=== PATIENT | female | born 1935 | race Caucasian/White ===

== ENCOUNTER → 2017-03-29 | Outpatient (CLI) | payer OTHER | LOC: FIMAGING 13:43 | PROVIDERS: ATTEND Registered Nurse | DX: R05 Cough (principal); R53.83 Other fatigue; I70.0 Atherosclerosis of aorta; G30.9 Alzheimer's disease, unspecified ==

== ENCOUNTER 2018-02-20 09:34 | Observation (INO) | payer OTHER ==
--- NOTE | 2018-02-20 09:47 | EDPHY ---
H & P Time Seen by Provider: 02/20/18 09:34 HPI/ROS: CHIEF COMPLAINT: Unresponsiveness at 9:00 a.m. HISTORY OF PRESENT ILLNESS: 80-year-old woman has pretty severe dementia and arrives by EMS. History is from them as she has no recollection of the event. Apparently EMS was called when at 9:00 a.m. The patient was found by staff at her assisted living in the bathroom with a bowel movement in the toilet, she was unresponsive and her eyes were rolled back and she was clutching her chest. She came around within less than a minute and now is asymptomatic. Further history and review of systems unavailable because the patient has dementia and does not remember any of this. Her guardian Naveen who arrives states that she has not been sick recently to his knowledge. PAST MEDICAL HISTORY: Dementia Social history: Assisted living General Appearance: Alert, follows commands Eyes: No scleral icterus. Pupils equal and reactive and extraocular motion intact. ENT, Mouth: Normal mucous membranes. No tongue laceration or abrasion. Respiratory: Normal respiratory effort, breath sounds equal, lungs are clear to auscultation. Cardiovascular: Regular rate and rhythm. Gastrointestinal: Abdomen is soft and non tender. Neurological: Alert, face symmetric, normal motor and sensory in extremities. She has poor memory but is able to follow commands and is able to the verbally respond appropriately to questions. Skin: Warm and dry, no rashes. Musculoskeletal: No peripheral edema. Psychiatric: Not agitated. Emergency Department course/MDM: Unknown but concern for neurologic or cardiac event. Head CT chest x-ray EKG and labs to include troponin. 1035: Results and plan discussed with the guardian Naveen and the patient. Seen by Dr. Rojo in Ed. Smoking Status: Never smoked Constitutional: Initial Vital Signs Temperature (C) 36.3 C 02/20/18 09:39 Heart Rate 72 02/20/18 09:39 Respiratory Rate 16 02/20/18 09:39 Blood Pressure 117/68 02/20/18 09:39 O2 Sat (%) 93 02/20/18 09:39 O2 Delivery Mode Room Air Allergies/Adverse Reactions: Penicillins Allergy (Verified 11/06/13 18:40) Home Medications: Medication Instructions Recorded Aspirin [Aspirin 81mg (*)] 81 mg PO DAILY 02/20/18 Docusate Sodium [Colace 100 MG (*)] 100 mg PO DAILY 02/20/18 Multivitamins [Multivitamin (*)] 1 each PO DAILY 02/20/18 Medical Decision Making - Diagnostics EKG Interpretation: 12-lead EKG interpreted by me; official reading is in trace master. My interpretation is sinus rhythm with nonspecific anterolateral T-wave flattening rate 75 per Imaging Results: Imaging Impressions Chest X-Ray 02/20/18 09:39 Impression: Chronic mild cardiomegaly without failure. Nothing acute identified. Head CT 02/20/18 09:45 Impression: 1. No acute intracranial findings. If symptoms persist and clinical suspicion warrants, consider MRI. 2. Diffuse cerebral atrophy with periventricular and subcortical low attenuation consistent with chronic microvascular ischemic gliosis. 3. 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 Findings discussed with STARLA LION 02/20/2018 at 10:29. Head CT shows nothing acute per Dr. Dean at 10:30 a.m. Imaging: Discussed imaging studies w/ executive personal assistant Radiologist, I viewed and interpreted images myself Differential Diagnosis: Differential diagnosis considered for syncope including but not limited to vasovagal syncope, arrhythmia, dehydration, and blood loss. Consult/Admit Bed Type: [facility] for Yasmin Rojo 1030 - Data Points Laboratory Results: Laboratory Results 02/20/18 09:40 02/20/18 09:40 02/20/18 02/20/18 09:40 09:40 WBC 8.41 10^3/uL 10^3/uL (3.80-9.50) RBC 5.30 10^6/uL 10^6/uL (4.18-5.33) Hgb 16.4 g/dL H g/dL (12.6-16.3) Hct 49.7 % H % (38.0-47.0) MCV 93.8 fL fL (81.5-99.8) MCH 30.9 pg pg (27.9-34.1) MCHC 33.0 g/dL g/dL (32.4-36.7) RDW 13.1 % % (11.5-15.2) Plt Count 272 10^3/uL 10^3/uL (150-400) MPV 10.8 fL fL (8.7-11.7) Neut % (Auto) 71.4 % % (39.3-74.2) Lymph % (Auto) 21.4 % % (15.0-45.0) Gordon % (Auto) 5.4 % % (4.5-13.0) Eos % (Auto) 0.6 % % (0.6-7.6) Baso % (Auto) 0.8 % % (0.3-1.7) Nucleat RBC Rel Count 0.0 % % (0.0-0.2) Absolute Neuts (auto) 6.01 10^3/uL 10^3/uL (1.70-6.50) Absolute Lymphs (auto) 1.80 10^3/uL 10^3/uL (1.00-3.00) Absolute Monos (auto) 0.45 10^3/uL 10^3/uL (0.30-0.80) Absolute Eos (auto) 0.05 10^3/uL 10^3/uL (0.03-0.40) Absolute Basos (auto) 0.07 10^3/uL 10^3/uL (0.02-0.10) Absolute Nucleated RBC 0.00 10^3/uL 10^3/uL (0-0.01) Immature Gran % 0.4 % % (0.0-1.1) Immature Gran # 0.03 10^3/uL 10^3/uL (0.00-0.10) Sodium 144 mEq/L mEq/L (135-145) Potassium 4.7 mEq/L mEq/L (3.5-5.2) Chloride 105 mEq/L mEq/L (97-110) Carbon Dioxide 27 mEq/l mEq/l (22-31) Anion Gap 12 mEq/L mEq/L (8-16) BUN 14 mg/dL mg/dL (7-23) Creatinine 0.8 mg/dL mg/dL (0.6-1.0) Estimated GFR > 60 Glucose 133 mg/dL H mg/dL (70-100) Calcium 9.3 mg/dL mg/dL (8.5-10.4) Troponin I < 0.012 ng/mL ng/mL (0.000-0.034) Specimen Hemolysis 102 Departure - Departure Disposition: [facility] Inpatient Acute Clinical Impression: Syncope Qualifiers: Syncope type: unspecified Qualified Code(s): R55 - Syncope and collapse Condition: Good
[2018-02-20 09:48] LABS: PLATELET COUNT 272 10^3/uL (150-400)
--- NOTE | 2018-02-20 10:12 | CPEKG ---
Heart Rate: 75 RR Interval: 800 P-R Interval: 136 QRSD Interval: 78 QT Interval: 424 QTC Interval: 474 P Magnolia: 55 QRS Magnolia: -6 T Wave Magnolia: 41 EKG Severity - BORDERLINE ECG - EKG Impression: SINUS RHYTHM EKG Impression: BORDERLINE T ABNORMALITIES, ANT-LAT LEADS Electronically Signed By: Lei Amato 20-Feb-2018 10:11:29
[2018-02-20] MEDS ORDERED: ONDANSETRON DISINTEGRATING 4 MG TAB PO PRN (11:10)
[2018-02-20] MEDS ORDERED: ACETAMINOPHEN 325 MG TAB PO PRN (11:10)
[2018-02-20] MEDS ORDERED: ONDANSETRON 4 MG/2 ML VIAL IVP PRN (11:10)
--- NOTE | 2018-02-20 11:45 | GHP ---
[f rep st] HISTORY AND PHYSICAL DATE OF ADMISSION: 02/20/2018 The patient is a pleasant 82-year-old female with a history of dementia who presents with a syncopal episode. History is obtained from her caregiver as the patient is essentially alert and oriented x1. It sounds like she has been eating and drinking normally, not having nausea, vomiting, diarrhea. N ot complaining of chest pain or shortness of breath. When she was found on the toilet this morning, slumped over, possibly clutching her chest with a bowel movement in the toilet. There is no comment on whether it was represented as black or diarrhea. According to her caregiver and power of liquor establishment manager, the patient HS been doing well. Eating and drinkin g normally, not having diarrhea, nausea, vomiting, cough, shortness of breath. There is a piece of paper at the bedside which is signed in August 2014 representing full code. I s pent about 15 minutes discussing the risks and benefits of a do not resuscitate order in this patient with advanced dementia. REVIEW OF SYSTEMS: A complete 10-point review of systems conducted and negative except as noted in t he HPI. PAST MEDICAL HISTORY: Dementia, osteoporosis, pelvic fracture. SOCIAL HISTORY: She lives in assisted living. No tobacco. No alcohol. FAMILY HISTORY: Parents are . PHYSICAL EXAMINATION: VITAL SIGNS: Temp 36.3, blood pressure 117/68, pulse 72, breathing 16 times a minute, 93% on room air. GENERAL: In no acute distress. HEENT: Sclerae anicteric. Oropharynx cl ear. Poor dentition. Mucous membranes are moist. NECK: Supple. No lymphadenopathy or JVD. LUNGS : Clear to auscultation bilaterally. HEART: S1, S2. ABDOMEN: Soft, nontender, nondistended. LOW ER EXTREMITIES: No edema. Calves are nontender. SKIN: Without rash. NEUROLOGIC: Exam is nonfoca l. The patient is alert and oriented x1. LABS: White count 8, hematocrit 49, platelets 272,000. Chem 7 normal. Glucose 133. Troponin less than 0.012. Chest x-ray interpreted by me shows no acute cardiopulmonary disease. EKG interpreted b y me shows sinus at 75 with normal axis and intervals. No ST or T-wave changes. I have discussed the case with Dr. Lei Amato. ASSESSMENT AND PLAN: 82-year-old female with syncope. 1. Syncope. In the setting of a bowel movement, this is most consistent with vasovagal syncope, whi ch is a benign condition. Tachy and bradycardias have been considered. Pulmonary embolism is unlike ly given bradycardia and absence of oxygen requirement or EKG strain. The patient does not have an a cute medical condition. She appears euvolemic. We will follow on telemetry. 2. Dementia. We will minimize sedating medications. 3. Code status. I discussed the risks and benefits of do not resuscitate. The caregiver is conside ring. 4. Question of gastrointestinal bleed. We will repeat a CBC in the morning. DISPOSITION: Observation status. /[id number]/MODL
[2018-02-21 04:11] LABS: PLATELET COUNT 248 10^3/uL (150-400)
[2018-02-21] MEDS ORDERED: ASPIRIN 81 MG CHEWABLE TAB PO SCH (09:00)
[2018-02-21] MEDS ORDERED: DOCUSATE SODIUM 100 MG CAP PO SCH (09:00)
[2018-02-21] MEDS ORDERED: MULTIVITAMINS 1 EACH TAB PO SCH (09:00)
--- NOTE | 2018-02-21 11:19 | HOSPPROG ---
Hospitalist Progress Note Assessment/Plan: 82 yo F w likely vasovagal syncope home today see dc summary Subjective: no events tele (interp by me). has elected dnr Objective: Vital Signs Temp Pulse Resp BP Pulse Ox 36.4 C 67 18 149/87 H 95 02/21/18 09:37 02/21/18 09:37 02/21/18 09:37 02/21/18 09:37 02/21/18 09:37 Laboratory Results 02/21/18 03:44 02/20/18 02/21/18 02/22/18 05:59 05:59 05:59 Intake Total 570 Balance 570 - Physical Exam Constitutional: no apparent distress, appears nourished Eyes: PERRL, anicteric sclera Ears, Nose, Mouth, Throat: moist mucous membranes, hearing normal Cardiovascular: regular rate and rhythym, no murmur, rub, or gallop, No systolic murmur Respiratory: no respiratory distress, no rales or rhonchi Gastrointestinal: normoactive bowel sounds, soft, non-tender abdomen Genitourinary: no bladder fullness, No mike in urethra Skin: warm Musculoskeletal: full muscle strength Neurologic: AAOx3 ICD10 Worksheet Patient Problems: Problems Problem Status Onset Syncope Acute Gait disturbance Acute
--- NOTE | 2018-02-21 11:25 | ASMTCMCOM ---
CM Note CM Note Notes: Patient admitted for likely vasovagal syncope. She has a history of dementia and lives in an assisted living facility. I spoke with her guardian/DIMITRY Hodge ([phone]) who will take her back to [facility], her assisted living facility. I spoke with Ruthie, her caregiver at the facility, and she agrees to have her back. No other discharge needs identified. Date Signed: 02/21/2018 11:24 AM Electronically Signed By:Dixie Luis RN
[2018-02-21 11:27] VITALS: BP 145/80
--- NOTE | 2018-02-21 12:55 | GDS ---
[f rep st] DISCHARGE SUMMARY DISCHARGE DIAGNOSES: 1. Dementia. 2. Vasovagal syncope. Please see admission history and physical by Dr. Jack Rojo. The patient was found unresponsive at assisted living with a bowel movement in the toilet. She was on the toilet at the time. EKG was unremarkable. Troponins negative. No events on telemetry. This is consistent with vasovagal syncop e. Please note, the patient is now do not resuscitate. /[id number]/MODL
== END 2018-02-21 13:25 | disposition home or self-care (01) ==
LOC: EDUNIT# → F2W 11:11
PROVIDERS: ADMIT Internal Medicine; ATTEND Internal Medicine
DX: R55 Syncope and collapse (principal); F03.90 Unspecified dementia, unspecified severity, without behavioral disturbance, psychotic disturbance, mood disturbance, and anxiety; Z88.0 Allergy status to penicillin
CPT/HCPCS: 70450; 71046; 93005; 97161; 97165; 97535; 99285; G0378; G8978; G8979; G8980; G8987; G8988